=== PATIENT | female | born 1990 | race Caucasian/White ===

== ENCOUNTER 2023-04-25 13:14 | Outpatient (REF) | payer OTHER, SELFPAY ==
[2023-04-25 14:48] LABS: MANUAL DIFF FLAG NO
[2023-04-25 15:06] LABS: Basophils Percent Auto 0.4 % (0-2); Eosinophils Absolute Auto 0.3 X10*3/uL (0.0-0.4); Hematocrit 41.4 % (37.0-47.0); Hemoglobin 13.6 g/dl (12.0-16.0); Imm Gran Abs Auto 0.02 X10*3/uL (0.00-0.03); Imm Gran Pct Auto 0.3 % (0.0-0.4); Lymphocytes Absolute Auto 1.9 X10*3/uL (1.2-4.9); Lymphocytes Percent Auto 28.5 % (20-40); Mean Corpuscular HGB Conc 32.9 g/dl (31.0-35.0); Mean Corpuscular Hemoglobin 29.3 pg (27.0-33.0); Mean Corpuscular Volume 89.2 fL (80.0-98.0); Mean Platelet Volume 11.3 fL (9.4-12.3); Monocytes Absolute Auto 0.5 X10*3/uL (0.1-1.2); Monocytes Percent Auto 7.8 % (2-11); Platelet Count 280 X10*3/uL (160-400); Red Blood Count 4.64 X10*6/uL (4.20-5.50); Red Cell Distribution Width 11.1 % (11.0-16.0); White Blood Count 6.8 X10*3/uL (4.8-10.8)
[2023-04-25 15:21] LABS: Rheumatoid Factor < 13.0 IU/mL (<15.0)
[2023-04-25 15:36] LABS: C Reactive Protein 0.47 mg/dL (< or = 0.50)
[2023-04-25 15:38] LABS: TSH reflex Free T4 1.39 uIU/mL (0.32-4.0)
[2023-04-25 15:57] LABS: Erythrocyte Sedimentation Rate 3 MM/HR (0-20)
[2023-04-30 14:43] LABS: Anti Nuclear Antibody Screen NEGATIVE (NEGATIVE)
== END 2023-04-25 13:15 | disposition home or self-care (01) ==
LOC: HO.CHCLDS 13:14
PROVIDERS: Visit Provider Internal Medicine
DX: R52 Pain, unspecified (principal)
CPT/HCPCS: 36415; 84443; 85025; 85652; 86038; 86140; 86431

== ENCOUNTER 2024-05-26 16:19 | Outpatient (REF) | payer BC, SELFPAY | END 2024-05-26 16:20 | disposition home or self-care (01) | LOC: HO.XRAY 16:19 | PROVIDERS: PCP Internal Medicine; Visit Provider Internal Medicine | DX: M54.6 Pain in thoracic spine (principal); G89.29 Other chronic pain | CPT/HCPCS: 72070 ==

== ENCOUNTER → 2024-05-26 16:27 | Outpatient (BNV) | payer BC, SELFPAY | PROVIDERS: PCP Internal Medicine; Visit Provider Radiology Diagnostic Radiology | DX: M54.6 Pain in thoracic spine (principal) | CPT/HCPCS: 72070 ==

== ENCOUNTER → 2024-08-27 08:48 | Outpatient (BNVA) | payer OTHER, SELFPAY | PROVIDERS: PCP Internal Medicine; Visit Provider Physician Assistant | DX: S46.912A Strain of unspecified muscle, fascia and tendon at shoulder and upper arm level, left arm, initial encounter (principal); S46.812A Strain of other muscles, fascia and tendons at shoulder and upper arm level, left arm, initial encounter; X50.1XXA Overexertion from prolonged static or awkward postures, initial encounter | CPT/HCPCS: 99203 ==

== ENCOUNTER 2025-06-23 10:11 | Outpatient (REF) | payer BC, SELFPAY ==
--- OUTSIDE RECORDS SUMMARY | 2015-03-03 05:00 | XMS_ITS | Continuity of Care Document ---
Author Organization [facility] Address [address] [place] [phone] Phone Care Team Providers Care Machinery Repair Maintenance Supervisor Name Role Phone Unavailable Unavailable Unavailable Allergies, Adverse Reactions, Alerts Substance Reaction Status Criticality DOG HAIR STANDARDIZED ALLERGENIC EXTRACT Itching(mild) Active No Information CAT HAIR STANDARDIZED ALLERGENIC EXTRACT Itching(mild) Active No Information Medications Medication Instructions Dosage Effective Dates (start - stop) Status Comments Microgestin 1.5/30 (21) 1.5 mg-30 mcg tablet take 1 tablet by oral route every day for BCP 1.00 tablet - Active Procedures Procedure Date DETERMINATION OF REFRACTIVE ANNUAL CL FIT EVALUATION DURING COMP EXA M COMPREHENSIVE EYE EXAM Advance Directives Directive Yes / No Effective Date File Name No Information Encounters Encounter Description Practice Location Reason(s) For Visit Diagnoses Date Provider Providers Copied on Encounter [facility], [address] [place] [address], [id number], tel:[phone] Primary Care New Cl fit (chief complaint) MyopiaCI No Information Family History Family Member Type Diagnosis Age At Onset Paternal aunt Problem (finding) diabetes mellitus type 2 Problem (finding) Mother Problem (finding) hypertension Paternal grandmother Problem (finding) glaucoma Payers Payer name Insurance type Covered republican ID Authoriza tibijal(s) [facility] Health Plan [facility] CI [id number] [facility] CI [id number] Social History Type Description Quantity Date Captured Comments Alcohol Use Details No Caffeine Use Details Unknown Tobacco Use Status Never smoked tobacco 2014 Smoking Status Never smoker Non-Smoking Tobacco Use Details : No Details Available : No Details Available Sex Female Chief Complaint And Reason For Visit From encounter dated '03/03/2015 10:00'. New Cl fit (chief complaint). Description: 24 y/o H F presents for Cl fit c a hx of CL wear 8 yrs ago c no complaints--pt reports would like monthly lenses to be worn every day up to 12 hours (-) reports bad compliance would sleep, swim, shower in CL unintentionally and reports that CL would help her eyes to not tear--pt does use AT's prn Reason For Referral Reason For Referral No Information History Of Present Illness Encounter Date Complaint History Of Prese nt Illness New Cl fit 24 y/o H F prese nts for Cl fit c a hx of CL wear 8 yrs ago c no complaints--pt reports would like monthly lenses to be worn every day up to 12 hours (-) reports bad compliance would sleep, swim, shower in CL unintentionally and reports that CL would help her eyes to not tear--pt does use AT's prn Functional Status Date Functional Assessmen t No Information Instructions Date Instruction Additional Infor mation Return in [address] Amparo Hewitt for Contact Lens Follow Up. Related to Myopia Impression/Plan - Ne w Spec Rx given, CL Biofinity trials given. Pt educated not to sleep, swim, or shower in CL's. Pt understands that CLRx/SRx is minimal. Pt subjectively feels vast improvement c CL's. Related to Myopia Impression/Plan - Pt educated about condition and option of VT for treatment. Pt is not interested in txt at this time because she reports she is very minimally symptomatic. Related to CI Follow up - Return i n [address] Amparo Hewitt for Contact Lens Follow Up. Related to Myopia Assessments Type Assessment Date assessment Myopia impression Myopia: 367.1. impression CI: 622.5. mildly spmtomatic Feb assessment CI Patient Care Teams Name Effective Dates (start - stop) Status Members No Information
--- OUTSIDE RECORDS SUMMARY | 2025-06-23 09:30 | XMS_ITS | Encounter Summary ---
Author Organization [employer] Address [address] [facility] 7t [place] [address] Care Team Providers Care Watch Train Inspector Name Role Phone Kami Tomas MD Primary Care Provider Reason for Visit * Reason Comments Annual Exam Encounter Details Date Type Department Care Team ([facility] Contact Info) Description 06/23/2025 9:30 AM EST Office Visit [facility] CHC MED & PEDS [address] [place] [address] Kami Tomas MD [address] [place] [address] Dysmenorrhea (Primary Dx); Annual physical exam; Mild intermittent asthma without complication; Seasonal allergies Social History Tobacco Use Types Packs/Day Years Used Date Smoking Tobacco: Never Passive Smoke Exposure: Never Smokeless Tobacco: Never Depression Answer Date Recorded Patient Health Questionnaire-9 Score 10 06/23/2025 Patient Health Questionnaire-9 Score 10 06/23/2025 Last PHQ-9: Questionnaire Data Not on file 1 08/23/2024 Housing Stability Answer Date Recorded What is your housing situation today? I have darrion marrufo 06/16/[address] you li ve. Do you have problems with any of the following? None of the above 06/16/2025 Food Insecurity Answer Date Recorded Within the past 12 months, y ou worried that your food would run out before you got money to buy more: Never True 06/16/2025 Within the past 12 months,th e food you bought just didn't last and you didn't have enough money to get more: Never True Transportation Answer Date Recorded In the past 12 months, has l ack of transportation kept you from medical appts, meetings, work or from getting things needed for daily living? No 06/16/2025 Utilities Answer Date Recorded In the past 12 months, has t he electric, gas, oil or water company threatened to shut off services in your home? No 06/16/2025 Depression Answer Date Recorded Patient Health Questionnaire-2 Score 2 06/23/2025 Internet Access Answer Date Recorded Internet Access Q1 Yes 06/16/2025 Internet Access Q2 Not on file 06/16/2025 Comments Unknown Sex and Gender Information Value Date Recorded Sex Assigned at Female 05/29/2022 10:30 AM EDT Legal Sex Female 10:30 AM EDT Gender Identity Female 05/29/2022 10:30 AM EDT Sexual Orientation Straight 05/29/2022 10 :30 AM EDT documented as of this encounter Last Filed Vital Signs Vital Sign Reading Time Taken Comments Blood Pressure 135/89 06/23/2025 9:49 AM EST Pulse 66 06/23/2025 9:49 AM EST Temperature 36.9 C (98.4 F) 06/23/2025 9:49 AM EST Respiratory Rate 20 06/23/2025 9:49 AM EST Oxygen Saturation 97% 06/23/2025 9:49 AM EST Inhaled Oxygen Concentration - - Weight 66.7 kg (147 lb) 06/23/2025 9:49 AM EST Height 160 cm (5' 3 ) 06/23/2025 9:49 AM EST Body Mass Index 26.04 06/23/2025 9:49 AM EST documented in this encounter Functional Status * Over the past 2 weeks, how often have you been bothered by any of the following problems? Question Answer Date of Assessment Author Patient Health Questionnaire-2 Score 2 05/31 10:39 AM EST Ranjana Nielson MA * Little interest or pleasure in doing things Answer Date of Assessment Author Several days 06/23/2025 10:39 AM EST Severiano Nielson MA * Feeling down, depressed, or hopeless Answer Date of Assessment Author Several days 06/23/2025 10:39 AM EST Severiano Nielson MA * Trouble falling or staying asleep, or sleeping too much Answer Date of Assessment Author More than half the days 06/23/2025 10:39 AM Ranjana Mcconnell MA * Feeling tired or having little energy Answer Date of Assessment Author Nearly every day 06/23/2025 10:39 AM Ranjana Mcconnell MA * Poor appetite or overeating Answer Date of Assessment Author Not at all 06/23/2025 10:39 AM Severiano Mcconnell MA * Feeling bad about yourself - or that you are a failure or have let yourself or your family down Answer Date of Assessment Author Not at all 06/23/2025 10:39 AM Severiano Mcconnell MA * Trouble concentrating on things, such as reading the newspaper or watching television Answer Date of Assessment Author Nearly every day 06/23/2025 10:39 AM Ranjana Mcconnell MA * Moving or speaking so slowly that other people could have noticed? Or the opposite - being so fidgety or restless that you have been moving around a lot more than usual. Answer Date of Assessment Author Not at all 06/23/2025 10:39 AM Severiano Mcconnell MA * Thoughts that you would be better off or hurting yourself in some way Answer Date of Assessment Author Not at all 06/23/2025 10:39 AM Severiano Mcconnell MA * Patient Health Questionnaire-9 Score Answer Date of Assessment Author 10 06/23/2025 10:39 AM Severiano Mcconnell MA * How difficult have these problems made it for you to do your work, take care of things at home, or get along with other people? Answer Date of Assessment Author Somewhat difficult 06/23/2025 10:39 AM Ranjana Mcconnell MA documented as of this encounter Plan of Treatment Scheduled Orders Name Type Priority Associated Diagnoses Orde r Schedule CBC auto differential Lab Routine Dysmenorrhea Annual physical exam Expected: 06/23/2025 (Approximate), Expires: 06/23/2026 Comprehensive Metabolic Panel Lab Routine Dysmenorrhea Annual physical exam Expected: 06/23/2025 (Approximate), Expires: 06/23/2026 Lipid Panel, Standard Lab Routine Dysmenorrhea Annual physical exam Expected: 06/23/2025 (Approximate), Expires: 06/23/2026 TSH with Reflex to Free T4 Lab Routine Dysmenorrhea Annual physical exam Expected: 06/23/2025 (Approximate), Expires: 06/23/2026 Hepatitis B Surface Antibody, Qualitative Lab Routine Annual physical exam Expected: 06/23/2025 (Approximate), Expires: 06/23/2026 documented as of this encounter Visit Diagnoses Diagnosis Dysmenorrhea- Primary Annual physical exam Routine general medical examination at a health care facility Mild intermittent asthma without complication Seasonal allergies Allergic rhinitis, cause unspecified documented in this encounter Additional Health Concerns Assessment Noted Time PHQ-9 Depression Total Score: 10 025 10:39 AM EST documented as of this encounter Care Teams Watch Train Inspector Relationship Specialty Start Date End Date Kami Tomas MD [address] [place] [id number] PCP - General Internal Medicine 03/19/18 documented as of this encounter
--- OUTSIDE RECORDS SUMMARY | 2025-06-23 12:26 | XMS_ITS | Encounter Summary ---
Author Organization [employer] Address [address] [facility] [address] [address] Care Team Providers Care Home Help Aide Name Role Phone Kami Tomas MD Primary Care Provider Reason for Referral * Consultation (Routine) - Closed Specialty Diagnoses / Procedures Referred By Contac t Referred To Contact Physical Therapy Diagnoses Chronic midline thoracic back pain Kami Tomas MD [address] [place] [address] Phone: tel: fax: AT Physical Therapy - [address] [address] Phone: tel: fax: Referral ID Status Reason Start Date Expiration Date V isits Requested Visits Authorized [id number] Closed Specialty Services Required 07/14/2024 07/14/2025 1 1 Encounter Details Date Type Department Care Team ([facility] st Contact Info) Description 07/14/2024 Orders Only [facility] CHC MED & PEDS [address] [place], [place] [phone] Kami Tomas MD [address] [place] [phone] Chronic midline thoracic back pain (Primary Dx) Social History Tobacco Use Types Packs/Day Years Used Date Smoking Tobacco: Never Passive Smoke Exposure: Never Smokeless Tobacco: Never Comments Unknown Sex and Gender Information Value Date Recorded Sex Assigned at Female 05/29/2022 10:30 AM EDT Legal Sex Female 10:30 AM EDT Gender Identity Female 05/29/2022 10:30 AM EDT Sexual Orientation Straight 05/29/2022 10 :30 AM EDT documented as of this encounter Plan of Treatment Scheduled Referrals Name Type Priority Associated Diagnoses Orde r Schedule Referral to Physical Therapy Outpatient Referral Routine Chronic midline thoracic back pain Expected: 07/14/2024 (Approximate), Expires: 07/14/2025 documented as of this encounter Visit Diagnoses Diagnosis Chronic midline thoracic back pain- Primary documented in this encounter Care Teams Home Help Aide Relationship Specialty Start Date End Date Kami Tomas MD [address] [place] [phone] PCP - General Internal Medicine 03/19/18 documented as of this encounter
--- OUTSIDE RECORDS SUMMARY | 2025-06-23 12:26 | XMS_ITS | Encounter Summary ---
Author Organization [email or web address] Address [address] [facility] 7t [place] [address] Care Team Providers Care Planner Intern Name Role Phone Kami Tomas MD Primary Care Provider Reason for Visit * Reason Onset Date Comments Chart Prep 06/22/2025 Encounter Details Date Type Department Care Team ([facility] st Contact Info) Description 06/22/2025 Telephone [facility] CHC MED & PEDS [address] [place] [address] Kami Tomas MD [address] [place], [place] [phone] Chart Prep Social History Tobacco Use Types Packs/Day Years [...] AM EDT documented as of this encounter Miscellaneous Notes * Telephone Encounter - Erin Partida MA - 06/22/2025 11:53 AM EST Chart Prep Labs: not applicable Images: not applicable Referrals: not applicable Vaccines due: Covid, Flu, Hep B, and HPV Screenings: STI screening and PISQ Overdue care gaps: SBIRT, PHQ-9, Disability screen, and Tobacco documented in this encounter Plan of Treatment Not on file documented as of this encounter Visit Diagnoses Not on filedocumented in this encounter Care Teams Planner Intern Relationship Specialty Start Date End Date Kami Tomas MD [address] [place] [phone] PCP - General Internal Medicine 03/19/18 documented as of this encounter
--- OUTSIDE RECORDS SUMMARY | 2025-06-23 12:27 | XMS_ITS | Encounter Summary ---
Author Organization [employer] Address [address] [facility] 7t [place] [address] Care Team Providers Care Ion Implant Machine Operator Name Role Phone Kami Tomas MD Primary Care Provider [phone] Encounter Details Date Type Department Care Team (Latest Contact Info) Description 06/23/2025 Travel Social History Tobacco Use Types Packs/Day Years Used Date Smoking Tobacco: Never Passive Smoke Exposure: Never Smokeless Tobacco: Never Depression Answer Date Recorded Patient Health Questionnaire-9 Score 10 06/23/2025 Patient Health Questionnaire-9 Score 10 06/23/2025 Last PHQ-9: Questionnaire Data Not on file 1 08/23/2024 Housing Stability Answer Date Recorded What is your housing situation today? I have darrionjarrett marrufo 06/16/[address] you [...] AM EDT documented as of this encounter Functional Status * Over the past 2 weeks, how often have you been bothered by any of the following problems? Question Answer Date of Assessment Author Patient Health Questionnaire-2 Score 2 05/31 10:39 AM Ranjana Mcconnell MA * Little interest or pleasure in doing things Answer Date of Assessment Author Several days 06/23/2025 10:39 AM Severiano Mcconnell MA * Feeling down, depressed, or hopeless Answer Date of Assessment Author Several days 06/23/2025 10:39 AM Severiano Mcconnell MA * Trouble falling or staying asleep, [...] as of this encounter Plan of Treatment Not on file documented as of this encounter Visit Diagnoses Not on filedocumented in this encounter Additional Health Concerns Assessment Noted Time PHQ-9 Depression Total Score: 025 10:39 AM EST documented as of this encounter Care Teams Ion Implant Machine Operator Relationship Specialty Start Date End Date Kami Tomas MD [address] [place] [address] [place] [address] PCP - General Internal Medicine 03/19/18 documented as of this encounter
--- OUTSIDE RECORDS SUMMARY | 2025-06-23 12:27 | XMS_ITS | Encounter Summary ---
Author Organization [employer] Address [address] [facility] 7t [place] [address] Care Team Providers Care Air Pollution Compliance Inspector Name Role Phone Kami Tomas MD Primary Care Provider Reason for Visit * Reason Onset Date Comments Nurse Triage 04/04/2023 Encounter Details Date Type Department Care Team ([facility] st Contact Info) Description 04/04/2023 Telephone [facility] CHC MED & PEDS [address] [place] [address] Kami Tomas MD [address] [place], [place] [phone] Nurse Triage Social History Tobacco Use Types Packs/Day Years Used Date Smoking Tobacco: Never Assessed Comments Unknown Sex and Gender Information Value Date Recorded Sex Assigned at Female 05/29/2022 10:30 AM EDT Legal Sex Female 10:30 AM EDT Gender Identity Female 05/29/2022 10:30 AM EDT Sexual Orientation Straight 05/29/2022 10 :30 AM EDT documented as of this encounter Miscellaneous Notes * Telephone Encounter - Zuly Foster RN - 04/04/2023 3:47 PM EDT Triage call Pt reports body aches / pain all the time. Pt requests an apt with pcp and referral to commercial attache. Apt with PCP 04/20/23 @ 345pm Insurance is verified as active prior to booking. Protocol Used: Muscle Aches and Body Pain (Adult) Protocol-Based Disposition: See in Office or Video Visit within 2 Weeks Video visit not offered Positive Triage Question: * Muscle aches or body pains are a chronic symptom (recurrent or ongoing AND present > 4 weeks) * All higher-acuity triage questions were negative Care Advice Discussed: * Reassurance and Education - Mild Muscle Pain * Pain Medicines * Pain Medicines - Extra Notes and Warnings * Reasons To Call Back - Fever occurs - Pain lasts longer than 7 days - You become worse * Telephone Encounter - Zuly Foster RN - 04/04/2023 3:45 PM EDT Triage call Pt reports a skin lump at the base of neck front. Pt reports it is painful especially to touch. Size of green pea. Neg for fever but, redness evident. Advised to come to [facility] to be seen and Pt reports will come in tomorrow morning 04/05/23. Hours given opens 830am-400pm. Insurance is verified as active. Protocol Used: Skin Lump or Localized Swelling (Adult) Protocol-Based Disposition: See in Office or Video Visit Today Video visit not offered Positive Triage Question: * Swelling is painful to touch and no fever * All higher-acuity triage questions were negative Care Advice Discussed: * Reasons To Call Back - Fever occurs - Spreading redness occurs - Swelling becomes painful - Swelling persists over 1 week - You become worse * Telephone Encounter - Evelia Naqvi - 04/04/2023 3:22 PM EDT Symptom: Skin Lump Outcome: Schedule an appointment to be seen within 3 days Reason: Caller denied all higher acuity questions The caller accepted this outcome documented in this encounter Plan of Treatment Not on file documented as of this encounter Visit Diagnoses Not on filedocumented in this encounter Care Teams Air Pollution Compliance Inspector Relationship Specialty Start Date End Date Kami Tomas MD [address] [place] [phone] PCP - General Internal Medicine 03/19/18 documented as of this encounter
--- OUTSIDE RECORDS SUMMARY | 2025-06-23 12:27 | XMS_ITS | Encounter Summary ---
Author Organization [employer] Address [address] [facility] [address] [place] [address] Care Team Providers Care Tub Rider Name Role Phone Kami Tomas MD Primary Care Provider Reason for Visit * Reason Onset Date Comments Med Refill 11/23/2022 Encounter Details Date Type Department Care Team (Late st Contact Info) Description 11/23/2022 Telephone [facility] [address] [place] [address] Kami Tomas MD [address] [place], [place] [phone] Med Refill Social History Tobacco Use Types Packs/Day Years Used Date Smoking Tobacco: Never Assessed Comments Unknown Sex and Gender Information Value Date Recorded Sex Assigned at Female 05/29/2022 10:30 AM EDT Legal Sex Female 10:30 AM EDT Gender Identity Female 05/29/2022 10:30 AM EDT Sexual Orientation Straight 05/29/2022 10 :30 AM EDT documented as of this encounter Miscellaneous Notes * Telephone Encounter - Leroy Mak - 11/23/2022 2:24 PM EDT Tc from pt requesting med refill Zyrtec Loratadine Benadryl Prednisone Flonase documented in this encounter Plan of Treatment Not on file documented as of this encounter Visit Diagnoses Not on filedocumented in this encounter Care Teams Tub Rider Relationship Specialty Start Date End Date Kami Tomas MD [address] [place] [phone] PCP - General Internal Medicine 03/19/18 documented as of this encounter
--- OUTSIDE RECORDS SUMMARY | 2025-06-23 12:27 | XMS_ITS | Encounter Summary ---
Author Organization [employer] Address [address] [facility] [address] [place] [address] Care Team Providers Care Nurse Epidemiologist Name Role Phone Kami Tomas MD Primary Care Provider Encounter Details Date Type Department Care Team ([facility] st Contact Info) Description 04/30/2023 Orders Only [facility] CHC MED & PEDS [address] [place] [address] Kami Tomas MD [address] [place] [address] Social History Tobacco Use Types Packs/Day Years [...] on filedocumented in this encounter Care Teams Nurse Epidemiologist Relationship Specialty Start Date End Date Kami Tomas MD [address] [place] [address] PCP - General Internal Medicine 03/19/18 documented as of this encounter
--- OUTSIDE RECORDS SUMMARY | 2025-06-23 12:27 | XMS_ITS | Clinical Summary ---
Author Organization [address] Address [address] [place] [phone] Phone Care Team Providers Care Shot Hole Driller Name Role Phone Kimmie Reyes MD Primary Care Provider Medications 28 mg iron- 800 mcg per tablet TAKE 1 TABLET BY MOUTH EVERY DAY 30 tablet 11 10/24/2024 Active Surgical History Surgery Date Site/Laterality Comments OTHER SURGICAL HISTORY PROCEDURE: DENIES PREVIOUS SURGERY Medical History Medical History Date Comments Major depression 05/03/2016 DX:Major depres patel Bipolar disorder, unspecifie d (CMS/HCC V24, CMS/HCC V28) DX:Bipolar disorder, unspeci fied ([facility]); COMMENT: [facility] in [place] Family History Medical History Relation Name Comments Diabetes Father Anemia Mother Lung cancer Uncle paternal Breast cancer Neg Hx Colon cancer Neg Hx Ovarian cancer Neg Hx Pancreatic cancer Neg Hx Prostate cancer Neg Hx Uterine cancer Neg Hx Relation Name Status Comments Father Mother Uncle Social History Tobacco Use Types Packs/Day Years Used Date Smoking Tobacco: Never Smokeless Tobacco: Never Alcohol Use Standard Drinks/Week Comments Yes 0 (1 standard drink = 0.6 oz pur e alcohol) Comments Unknown Sex and Gender Information Value Date Recorded Sex Assigned at Not on file Legal Sex Female 5:43 PM EST Gender Identity Not on file Sexual Orientation Not on file Obstetrics History Last Filed Vital Signs Vital Sign Reading Time Taken Comments Blood Pressure 118/73 05/08/2024 3:31 PM EDT Pulse 58 05/08/2024 3:31 PM EDT Temperature - - Respiratory Rate - - Oxygen Saturation - - Inhaled Oxygen Concentration - - Weight 61.2 kg (135 lb) 05/08/2024 3:31 PM EDT Height 162.6 cm (5' 4 ) 02/02/2023 3:21 PM EDT Body Mass Index 23.17 02/02/2023 3:21 PM EDT Plan of Treatment Health Maintenance Due Date Last Done Comments DTaP,Tdap,and Td Vaccines (1 - Tdap) 2009 Hepatitis B Vaccines (1 of 3 - 19+ 3-dose series) 2009 HPV Vaccines (1 - 3-dose SCD M series) 2017 HIV Screening 07/01/2022 Hepatitis C Screening 07/01/2022 Social Influencers of Health Screening 07/01/2022 Depression Screening 07/30/2024 Cervical Cancer Screening: P ap Smear 11/24/2024 11/24/2021, 04/03/2019, 08/06/2018 COVID-19 Vaccine (3 - 2024-2 6 season) 2025 05/16/2021, 04/21/2021 Influenza Vaccine (#1) 2025 RSV Immunization Adult Patients (1 - 1-dose 75+ series) 2065 HIB Vaccines Aged Out No longer eligi ble based on patient's age to complete this topic Hepatitis A Vaccines Aged Out No long er eligible based on patient's age to complete this topic IPV Vaccines Aged Out No longer eligi ble based on patient's age to complete this topic MMR Vaccines Aged Out No longer eligi ble based on patient's age to complete this topic Meningococcal ACWY Vaccine Aged Out N o longer eligible based on patient's age to complete this topic Meningococcal B Vaccine Aged Out No l onger eligible based on patient's age to complete this topic Pneumococcal Vaccine: Pediatrics (0 to 5 Years) and At-Risk Patients (6 to 49 Years) Aged Out No longer eligible b ased on patient's age to complete this topic RSV Immunization Patients Under 20 months Aged Out No longer eligible b ased on patient's age to complete this topic Varicella Vaccines Aged Out No longer eligible based on patient's age to complete this topic Procedures Procedure Name Priority Date/Time Associated Diagnosis Comments PAP SMEAR Routine 11/24/2021 from Last 3 Months or Most Recently Relevant to Health Maintenance Results * Pap smear (11/24/2021) 11/24/2021 Narrative HISTORICAL TESTING LAB RESULTING AGENCY - 12/13/2021 7:25 AM EDT [id number] THINPREP PAP, IMAGED: NEGATIVE FOR SQUAMOUS INTRAEPITHELIAL LESION AND MALIGNANCY. ABUNDANT PARTIALLY OBSCURING ACUTE INFLAMMATORY CELLS ARE PRESENT. ABUNDANT RED BLOOD CELLS ARE PRESENT. NOTE: THE PAP TEST IS A SCREENING TEST WITH AN INHERENT FALSE NEGATIVE RATE. AUTOMATED PRESCREENING OF ALL LIQUID BASED SPECIMENS IS PERFORMED BY THE THINPREP IMAGING SYSTEM UNLESS OTHERWISE STATED. SALVATORE [address]ANE(ASCP) (CASE ELECTRONICALLY SIGNED 12 12 2021) RESULT OF APTIMA HIGH RISK HPV ASSAY: HIGH RISK HPV: NEGATIVE (SEROTYPES 16,18,31,33,35,39,45,51,52,56,58,59,66,68) COMPLETED ON 2021-11-25 ADEQUACY: SATISFACTORY ENDOCERVICAL/TRANSFORMATION ZONE COMPONENT PRESENT. SOURCE: THINPREP PAP HPV ANY DX: REFLEX 16 AND 18, CERVICAL, IMAGED CLINICAL INFORMATION: HPV ANY DIAGNOSIS. PAP HX NEGATIVE, [Z12.4, Z01.419] Leopoldo Thurston MD LAB CYTOLOGY ORDERABLES Final Result HISTORICAL TESTING LAB RESULTING AGENCY from Last 3 Months or Most Recently Relevant to Health Maintenance Insurance [facility] Care Teams Shot Hole Driller Relationship Specialty Start Date End Date Kimmie Reyes MD [address] [place] [id number] PCP - General Internal Medicine 02/06/17
--- OUTSIDE RECORDS SUMMARY | 2025-06-23 12:27 | XMS_ITS | Encounter Summary ---
Author Organization [employer] Address [address] [facility] [address] [place] [address] Care Team Providers Care Shop Mechanic Name Role Phone Kami Tomas MD Primary Care Provider Reason for Visit * Reason Onset Date Comments Referral 11/23/2022 Encounter Details Date Type Department Care Team (Late st Contact Info) Description 11/23/2022 Telephone [facility] MEDICINE [address] [place] [address] Kami Tomas MD [address] [place] [address] Referral Social History Tobacco Use Types Packs/Day Years [...] Telephone Encounter - Leroy Mak - 11/23/2022 2:25 PM EDT Tc from pt requesting a new referral to a new bill cutter specialist due to previous one being shut down and close. Please contact pt at [phone] documented in this encounter Plan of Treatment Not on file documented as of this encounter Visit Diagnoses Diagnosis Seasonal allergies- Primary Allergic rhinitis, cause unspecified documented in this encounter Care Teams Shop Mechanic Relationship Specialty Start Date End Date Kami Tomas MD [address] [place] [phone] PCP - General Internal Medicine 03/19/18 documented as of this encounter
--- OUTSIDE RECORDS SUMMARY | 2025-06-23 12:27 | XMS_ITS | Encounter Summary ---
Author Organization [employer] Address [address] [facility] [address] [place] [address] Care Team Providers Care Glass Science Engineer Name Role Phone Kami Tomas MD Primary Care Provider Reason for Visit * Reason Onset Date Comments Med Refill 12/27/2022 Encounter Details Date Type Department Care Team (Late st Contact Info) Description 12/27/2022 Telephone [facility] MEDICINE [address] [place] [address] Kami Tomas MD [address] [place] [address] Med Refill Social History Tobacco Use Types [...] encounter Miscellaneous Notes * Telephone Encounter - Abi Wyatt - 12/27/2022 2:16 PM EDT Tc from pt requesting medication refill on cetirizine (ZyrTEC) 10 MG tablet documented in this encounter Plan of Treatment Not on file documented as of this encounter Visit Diagnoses Not on filedocumented in this encounter Care Teams Glass Science Engineer Relationship Specialty Start Date End Date Kami Tomas MD [address] [place] [id number] PCP - General Internal Medicine 03/19/18 documented as of this encounter
--- OUTSIDE RECORDS SUMMARY | 2025-06-23 12:27 | XMS_ITS | Clinical Summary ---
Author Organization [employer] Address [address] [facility] [address] [place] [address] Care Team Providers Care Radiology Technologist Name Role Phone Kami Tomas MD Primary Care Provider Allergies No known active allergies Medications albuterol (ProAir HFA) 108 (90 Base) MCG/ACT inhaler inhale 2 puffs by inhalation route 4- 6 times every day 022 Active cetirizine (ZyrTEC) 10 MG tablet TAKE 1 TABLET BY MOUTH EVERY DAY IN THE MORNING 30 tablet 3 024 Active [facility] D3 25 MCG (1000 UT) capsule TAKE 1 CAPSULE BY MOUTH EVERY DAY 90 capsule 3 024 Active D3-1000 25 MCG (1000 UT) capsule TAKE 1 CAPSULE BY MOUTH EVERY DAY 30 capsule 11 025 Active albuterol 108 (90 Base) MCG/ACT inhalerIndicati ons:Mild intermittent asthma without complication Inhale 2 puffs every 6 (six) hours if needed for wheezing. 8.5 g 1 025 2025 Active fluticasone (Flonase) 50 MCG/ACT nasal sprayIndication s:Seasonal allergies Administer 1-2 sprays into each nostril Once per day. Shake gently. Before first use, prime pump. After use, clean tip and replace cap. 16 g 2 025 2025 Active hydrOXYzine HCl (Atarax) 50 MG tablet take 1 tablet by oral route 2 times every day as needed for anxiety 2024 Discontinued(T herapy completed) lisdexamfetamin e (Vyvanse) 20 MG capsule take 1 capsule by oral route every day in the morning 2024 Discontinued(T herapy completed) psyllium (Metamucil) 33 % powder take 1 pack up to 3 times a day for constipation as needed 2024 Discontinued(T herapy completed) ARIPiprazole (Abilify) 2 MG tablet take 2 Tablet by Oral route every day 2024 Discontinued(T herapy completed) diphenhydrAMINE (BENADryl) 25 MG tablet Take 1 tablet by oral route every day 90 tablet 023 2024 Discontinued(T herapy completed) fluticasone (Flonase) 50 MCG/ACT nasal spray Administer 1-2 sprays into each nostril in the morning. Shake gently. Before first use, prime pump. After use, clean tip and replace cap. 16 g 2 023 2024 Discontinued(R eorder (will not trigger notification to Pharmacy)) DULoxetine (Cymbalta) [address] capsule Take 1 capsule (20 mg) by mouth 2 times daily. Do not crush or chew. 60 capsule 11 023 2024 Discontinued(T herapy completed) loratadine (Claritin) 10 MG tablet TAKE 1 TABLET BY MOUTH EVERY DAY 90 tablet 024 2024 Discontinued(T herapy completed) albuterol 108 (90 Base) MCG/ACT inhaler Inhale 2 puffs every 6 (six) hours if needed for wheezing. 8.5 g 1 024 2024 Discontinued(R eorder (will not trigger notification to Pharmacy)) Active Problems Problem Noted Date Diagnosed Date Localized swelling, mass and lump, neck 04/05/20 23 Assessment & Plan (04/05/2023 11:13 AM EDT): Exam consistent with normal lymph node. No lymphadenopathy. Normal breast exam No evidence of infection. Recommend monitor and seek medical attention for any enlargement, pain, changes or other concerns. Pt agrees with the plan. Primary oligomenorrhea 02/02/2023 Overview (04/05/2023): Last Assessment & Plan: I counseled Shantanu that she may meet criteria for PCOS. Lab testing would be good. She may have already had it with [facility]. She will check with them and if not, we can order it. She agreed. Dysmenorrhea 09/26/2022 Overview (11/23/2022): Last Assessment & Plan: Option of diagnostic laparoscopy discussed and patient wishes to defer at this time. Atypical squamous cell henriquez es of undetermined significance (ASCUS) on cervical cytology with positive high risk human papilloma virus (HPV) 09/13/2018 Overview (11/23/2022): She has completed Gardasil vac in the past and is none smoker 08/06/2018 Pap smear ASCUS HR HPV 09/13/2018 Colpo CALLIE 1-2, undergoing expected management with 6 month follow up with negative papsmear and colposcopy/biopsy Major depression 05/03/2016 Encounters Date Type Department Care Team Description 06/23/2025 9:30 AM EST Office Visit [facility] [address] [place] [address] aKmi Tomas MD Dysmenorrhea (Primary Dx); Annual physical exam; Mild intermittent asthma without complication; Seasonal allergies 06/23/2025 Travel 06/22/2025 Telephone [facility] [address] [place] [address] Kami Tomas MD Chart Prep 06/16/2025 Patient Outreach [facility] MED[facility] [address] [place] [address] Kami Tomas MD Pre-visit Planning (SDOH screening negative and Tobacco screening negative) 05/26/2025 Telephone [facility] MED[facility]INE [address] [place] [phone] Kami Tomas MD lab order request from Last 3 Months Immunizations Immunization Administration Dates Next Due Influenza injectable quadriv alent IIV4 with preservative 05/22/2016 Moderna Covid-19 Vaccine 12+ 05/16/2021 Tdap 05/22/2016 Family History Medical History Relation Name Comments Diabetes type II Father Heart attack Father Hyperlipidemia Father Hypertension Father Dementia Maternal Grandfather Dementia Maternal Grandmother Diabetes type II Mother Hypertension Mother Relation Name Status Comments Father Maternal Grandfather Maternal Grandmother Mother Social History Tobacco Use Types Packs/Day Years Used Date Smoking Tobacco: Never Passive Smoke Exposure: Never Smokeless Tobacco: Never Tobacco Cessation:Counseling Given: Not Answered Depression Answer Date Recorded Patient Health Questionnaire-9 [...] Orientation Straight 05/29/2022 10 :30 AM EDT Last Filed Vital Signs Vital Sign Reading [...] Mass Index 26.04 06/23/2025 9:49 AM EST Plan of Treatment Health Maintenance Due Date Last Done Comments HIV Screening 1990 Family Planning (PISQ) 2005 HPV Vaccines (1 - 3-dose series) 2005 Hepatitis B Vaccines (1 of 3 - 19+ 3-dose series) 2009 Pneumococcal Vaccine: Pediatrics (0 to 5 Years) and At-Risk Patients (6 to 49) Years (1 of 2 - PCV) 2009 Depression Monitoring 12/21/2025 06/23/2025 , 06/23/2025 Influenza Vaccine (#1) 2026 05/22/2016 Postp oned from 03/30/2025 (Patient Refused) DTaP/Tdap/Td Vaccines (2 - T d or Tdap) 05/22/2026 05/22/2016 Alcohol/Substance Use Screening 06/23/2026 06/23/2025 COVID-19 Vaccine (4 - 2024-2 6 season) 2026 02/27/2022, 05/16/2021, 04/21/2021 Postponed from 03/30/2025 (Patient Refused) Disability Screening 06/23/2026 06/23/2025 SDOH Screening 06/23/2026 06/23/2025 Tobacco Screening 06/23/2026 06/23/2025 Cervical Cancer Screening 11/24/2026 HPV/Cotest 11/24/2026 11/24/2021, 04/03/2019, 08/06/2018 Pap Smear 11/24/2026 11/24/2021, 04/03/2019, 08/06/2018 Zoster Vaccines (1 of 2) 2040 RSV Patients and Patients Aged 60 years or older (1 - 1-dose 75+ series) 2065 Hepatitis C Screening Completed 01/02/2022 HIB Vaccines Aged Out No longer eligi [...] patient's age to complete this topic Meningococcal Vaccine Aged Out No tianna candida eligible based on patient's age to complete this topic RSV under 20 months Aged Out No longe r eligible based on patient's age to complete this topic Rotavirus Vaccines Aged Out No longer eligible based on patient's age to complete this topic Procedures Procedure Name Priority Date/Time Associated Diagnosis Comments ZZZ HISTORICAL HEPATITIS C AB W/REFL TO HCV RNA, QN, PCR Routine 01/02/2022 12:00 AM EDT HM PAP/HPV Routine 11/24/2021 from Last 3 Months or Most Recently Relevant to Health Maintenance Results * HEPATITIS C AB W/REFL TO HCV RNA, QN, PCR (01/02/2022 12:00 AM EDT) HEPATITIS C ANTIBODY NON-REACT DELIA NON-REACT DELIA [facility] INDEX 0.05 <1.00 [facility] Comment: HCV antibody was non-reactive. There is no laboratory evidence of HCV infection. In most cases, no further action is required. However, if recent HCV exposure is suspected, a test for HCV RNA (test code 71699) is suggested. For additional information please refer to http://education.enymotion/faq/PEO32j2 (This link is being provided for informational/ educational purposes only.) 01/02/2022 us Kami Tomas MD HISTORICAL/NON ORDERABLE FRANCK LYONS Final Result [facility] [address] * Pap Smear (11/24/2021) Pap Negative for intraephithelial lesion or malignancy Negative for intraephithelial lesion or malignancy, Other HPV Undetected Undetected, Indeterminate, Quantitative, Not Detected Historical Provider MD HEALTH MAINTENANCE Final Result from Last 3 Months or Most Recently Relevant to Health Maintenance Insurance [facility] [employer] P[employer] Care Teams Radiology Technologist Relationship Specialty Start Date End Date Kami Tomas MD [address] [place] [id number] PCP - General Internal Medicine 03/19/18
[2025-06-23 14:17] LABS: MANUAL DIFF FLAG NO
[2025-06-23 14:32] LABS: Hematocrit 40.2 % (37.0-47.0); Hemoglobin 13.4 g/dl (12.0-16.0); Imm Gran Abs Auto 0.08 X10*3/uL (0.00-0.03); Imm Gran Pct Auto 1.2 % (0.0-0.4); Lymphocytes Absolute Auto 1.7 X10*3/uL (1.2-4.9); Mean Corpuscular HGB Conc 33.3 g/dl (31.0-35.0); Mean Corpuscular Hemoglobin 29.4 pg (27.0-33.0); Mean Corpuscular Volume 88.2 fL (80.0-98.0); NRBC Abs Auto 0.000 X10*3/uL (0.0-0.012); NRBC Pct Auto 0.0 /100WBC (0.0-0.2); Platelet Count 378 X10*3/uL (160-400); Red Blood Count 4.56 X10*6/uL (4.20-5.50); White Blood Count 6.7 X10*3/uL (4.8-10.8)
[2025-06-23 15:01] LABS: Alanine Aminotransferase 29 U/L (0-31); Albumin Level 4.8 g/dL (3.5-5.0); Alkaline Phosphatase 93 U/L (39-117); Anion Gap 13 (12-20); Aspartate Amino Transferase 31 U/L (5-31); Blood Urea Nitrogen 12 mg/dL (9-16); Calcium 9.4 mg/dL (8.4-10.2); Carbon Dioxide 26 mmol/L (22-29); Chloride 105 mmol/L (96-108); Cholesterol 188 mg/dL (<200); Estimated Glomerular Filt Rate > 60; HDL Cholesterol 40 mg/dL (>40); Potassium 3.9 mmol/L (3.3-5.1); Sodium 140 mmol/L (135-145); Total Protein 7.9 g/dL (6.5-8.0); Triglycerides 189 mg/dL (<150)
[2025-06-24 05:45] LABS: HBS Num1 246.05 mIU/mL (0-7.99); ~Hepatitis B Surface Antibody REACTIVE (Nonreactive)
== END 2025-06-23 10:12 | disposition home or self-care (01) ==
LOC: HO.CHCLDS 10:11
PROVIDERS: Visit Provider Internal Medicine
DX: Z00.00 Encounter for general adult medical examination without abnormal findings (principal); Z01.84 Encounter for antibody response examination; Z94.6 Bone transplant status; Z13.6 Encounter for screening for cardiovascular disorders
CPT/HCPCS: 36415; 80053; 80061; 84443; 85025; 86706